=== PATIENT | female | born 1955 | race Caucasian/White ===

== ENCOUNTER → 2019-09-13 | Day surgery (SDC) | payer SELFPAY ==
[2016-08-07 20:04] VITALS: BP 159/95
[~2019-09-13] MED LIST: ALBUTEROL0.09 MG/A4 IH; ASPIRIN E.C. 8181 MG PO; BACTRIM DS TAB1 EACH PO; LORATADINE1 POW PO; MAGNESIUM CHELA27 MG PO; PREDNISONE20 MG PO; [UNRECOGNIZED DRUG - REMARK] PO
== END | disposition home or self-care (01) ==
LOC: MSO 09:45
DX: H26.8 Other specified cataract (principal); Z79.899 Other long term (current) drug therapy; F41.9 Anxiety disorder, unspecified; Z79.82 Long term (current) use of aspirin
CPT/HCPCS: 00142; J0171; J2250; V2632

== ENCOUNTER → 2019-12-13 | Day surgery (SDC) | payer SELFPAY ==
[2016-08-07 20:04] VITALS: BP 159/95
== END ==
LOC: MSO 10:04
DX: H25.812 Combined forms of age-related cataract, left eye (principal); F41.9 Anxiety disorder, unspecified; Z88.0 Allergy status to penicillin
CPT/HCPCS: 00142; J0171; J2250; V2632